=== PATIENT | female | born 1990 | race Caucasian/White ===

== ENCOUNTER → 2016-10-18 | Day surgery (SDC) | payer BC ==
[~2016-10-18] VITALS: Ht 157.5 cm; Wt 89.2 kg
[~2016-10-18] MED LIST: NORCO 5-325 TA1 EACH PO
--- NOTE | ~2016-10-18 | OR ---
PATIENT'S NAME: LUTHER LOGAN [facility] AGE: 26 Y [address] ROOM: [place], [place] [address] LOCATION: [facility] [place] ADMIT DATE: 10/18/2016 OR/Procedure Report DISCHARGE DATE: FAMILY PHYSICIAN: Isiah Degroot MD ATTENDING PHYSICIAN: Alycia Morocho SURGEON: Alycia Morocho MD DOCTOR OSTEOPATHIC: Aliya Bustos PA-C DATE OF PROCEDURE: 10/18/2016 PREOPERATIVE DIAGNOSIS: Cholelithiasis. POSTOPERATIVE DIAGNOSIS: Cholelithiasis. PROCEDURE PERFORMED: Laparoscopic cholecystectomy. ANESTHESIA: General endotracheal. ESTIMATED BLOOD LOSS: Less than 10 mL. SPECIMENS: Gallbladder. REASON/INDICATION FOR PROCEDURE: The patient is a 26-year-old female, who has had several attacks of right upper quadrant pain consistent with biliary colic. She had an ultrasound showing cholelithiasis, but no signs of duct dilatation. Liver function tests were unremarkable. Initially, patient was going to wait this out but because of persistent attacks of pain, she elected to proceed with cholecystectomy. FINDINGS: The patient had a normal-sized cystic duct. She did have stones within the gallbladder. The procedure was otherwise uneventful. PROCEDURE IN DETAIL: The patient was taken to the operating suite and placed in the supine position. After general endotracheal anesthesia was obtained, the abdomen was prepped with ChloraPrep and sterilely draped. Marcaine with epinephrine was injected into the incision sites. A 2 cm transverse infraumbilical incision was made. The fascia was grasped and elevated, and a Veress needle was used to obtain a pneumoperitoneum. An 11-mm blade with trocar was then passed across the abdominal wall. Three 5 mm subcostal trocars were all placed under direct visualization. The fundus of the gallbladder was grasped and elevated. A second grasper was placed on the infundibulum. We began dissecting through the neck area of the gallbladder. The cystic duct and cystic artery were skeletonized all the way up to the gallbladder wall. The duct and artery were quite adherent to each other. We were eventually able to separate them and staple the artery. This was then divided with cautery. We were then able to easily clip the cystic duct PATIENT'S NAME: LUTHER LOGAN [facility] AGE: 26 Y [address] ROOM: [place], [place] [address] LOCATION: [facility] [place] ADMIT DATE: 10/18/2016 OR/Procedure Report DISCHARGE DATE: FAMILY PHYSICIAN: Isiah Degroot MD ATTENDING PHYSICIAN: Alycia Morocho proximally and distally and divided it with scissors. The gallbladder was then mobilized free of the liver bed using cautery. Once fully mobilized, the gallbladder was removed from the umbilicus. The right upper quadrant was inspected. There were no signs of any bleeding or bile leak. The abdomen was scanned. No other abnormalities were seen. The trocars were all withdrawn and pneumoperitoneum was evacuated. The fascia at the umbilicus was closed with a Vicryl suture. The skin incisions were all closed with subcuticular Monocryl. Benzoin, Steri-Strips, and gauze dressings were applied. POSTPROCEDURE PLAN: The patient will be sent to recovery and discharged to home when awake and alert. She was given a prescription for [place] for pain control. She can gradually advance her diet as tolerated. I will see her in the office in 1 to 2 weeks. ALYCIA MOROCHO MD JTM/naseeml /[id number] d: 10/18/167 t: 10/22/16 1400, OPERATIVE SUMMARY
--- NOTE | ~2016-10-18 | HP ---
PATIENT'S NAME: LUTHER LOGAN [facility] AGE: 26 Y [address] ROOM: [place] [address] LOCATION: [facility] [place] ADMIT DATE: 10/18/2016 History & Physical DISCHARGE DATE: FAMILY PHYSICIAN: Isiah Degroot MD ATTENDING PHYSICIAN: Rolando Morocho DATE OF SERVICE: PREOPERATIVE DIAGNOSIS/REASON FOR ADMISSION: Cholelithiasis with biliary colic. HISTORY OF PRESENT ILLNESS: The patient is a 26-year-old female, who has had several attacks of right upper quadrant pain. An ultrasound revealed cholelithiasis. Initially, she decided to hold off on cholecystectomy, but with the increasing symptoms, she decided to go ahead with cholecystectomy. Her liver function tests have been normal. Her ultrasound confirmed stones, but no signs of duct dilatation. PAST MEDICAL HISTORY: It is only positive for remote history of anemia. PAST SURGICAL HISTORY: Previous surgeries include tonsillectomy. ALLERGIES: NO KNOWN DRUG ALLERGIES. PHYSICAL EXAMINATION: GENERAL: The patient is a healthy, well-nourished young female. She is in no obvious distress or discomfort. VITAL SIGNS: All within normal limits. HEENT: Pupils are equal. There is no scleral icterus. RESPIRATORY: Breathing is nonlabored. LUNGS: Clear to auscultation bilaterally. HEART: Regular rate and rhythm. ABDOMEN: Soft, nondistended, and nontender. EXTREMITIES: No obvious deformities. No cyanosis or clubbing. ASSESSMENT: A 26-year-old female with cholelithiasis and increasing attacks of biliary colic. We discussed the risks and benefits of surgery. PLAN: We will proceed with cholecystectomy. [facility] 26 [facility] [address] ROOM: [place], [place] [address] LOCATION: [facility] [place] ADMIT DATE: 10/18/2016 History & Physical DISCHARGE DATE: FAMILY PHYSICIAN: Isiah Degroot MD ATTENDING PHYSICIAN: Rolando Morocho MD AMANDA SOLOMON/naseeml /[id number]: [id number] T: [id number] HISTORY & PHYSICAL
== END | disposition disaster alternative care site (69) ==
LOC: GPOC 10-16 11:00 → GSDC 10:37 → GPOC 11:00
PROC: 0FT44ZZ Resection of Gallbladder, Percutaneous Endoscopic Approach (ICD-10-PCS; principal; 2016-10-18)
DX: K80.10 Calculus of gallbladder with chronic cholecystitis without obstruction (principal); D50.9 Iron deficiency anemia, unspecified; Z87.891 Personal history of nicotine dependence; Z98.890 Other specified postprocedural states
CPT/HCPCS: J0694; J1100; J2001; J2405; J3010; J7030